=== PATIENT | male | born 1955 | race Caucasian/White ===

== ENCOUNTER 2021-04-09 15:46 | Inpatient (IN) ==
[2021-04-09 16:50] LABS: Albumin 2.6 g/dL (3.2-5.2); Calcium 8.6 mg/dL (8.6-10.3); Magnesium 1.7 mg/dL (1.9-2.7); Potassium 4.3 mmol/L (3.5-5.0); Total Bilirubin 0.9 mg/dL (0.2-1.0)
[2021-04-09 16:56] LABS: Albumin/Globulin Ratio 0.8 (1-3); C Reactive Protein 156.55 mg/L (<8.01); EGFR African American 69.1 (>60); EGFR Non-African American 57.1 (>60); Globulin 3.4 g/dL (2-4)
[2021-04-09] MEDS ORDERED: Magnesium Sulfate 2 gm BAG 2 GM/50 ML BAG IVPB ONE (17:05)
[2021-04-09 17:51] LABS: Anisocytosis 3+; Hypochromasia 1+
[2021-04-09 17:52] LABS: ABS Lymphocytes 0.8 10^3/ul (1.0-4.8); ABS Monocytes 0.4 10^3/ul (0-0.8); ABS Neutrophils 8.2 10^3/ul (1.5-7.7); ABS Nucleated RBC 0.1 10^3/ul; Hematocrit 31 % (42-52); Hemoglobin 10.1 g/dL (14.0-18.0); Lymphocyte % 8.1 %; Mean Corpuscular HGB Conc 32 g/dL (31-36); Mean Corpuscular Hemoglobin 34 pg (27-31); Mean Corpuscular Volume 106 fL (80-94); Mean Platelet Volume 9.3 fL (7.4-10.4); Nucleated Red Blood Cells % 0.5; Platelet Count 104 10^3/uL (150-450); Red Blood Count 2.96 10^6 /uL (4.18-5.48); Red Cell Distribution Width 26 % (10-15); White Blood Count 9.4 10^3/uL (3.5-10.8)
[2021-04-09] MEDS ORDERED: NS 0.9% 1000 ml BAG 1,000 ML IV ONE (19:51)
[2021-04-09] MEDS ORDERED: cefTRIAXone 1 gm/50 mL NS BAG 1 GM/50 ML BAG IV ONE (20:20)
[2021-04-09 20:33] LABS: PCO2 Arterial 59 mmHg (35-45); PO2 Arterial 171 mmHg (80-100)
[2021-04-09] MEDS ORDERED: Vancomycin 1,000 MG in NS 0.9% 250 ml 250 ML IVPB ONE (20:45)
[2021-04-09] MEDS ORDERED: Vancomycin per Pharmacy 1 EA NOTE FOLLOW UP SCH (21:00)
[2021-04-09 21:03] LABS: Phosphorus 2.9 mg/dL (2.5-5.0)
[2021-04-09] MEDS ORDERED: Thiamine 100 MG/ML 2 ml VIAL (200 mg) IM ONE (21:05)
[2021-04-09] MEDS ORDERED: Cefepime 1 GM IV - ED ONCE IV ONE (21:45)
[2021-04-09] MEDS ORDERED: Vancomycin 1,250 MG in NS 0.9% 250 ml 250 ML IVPB ONE (22:00)
[2021-04-09 22:19] LABS: Alcohol, S < 10 mg/dL (<10)
[2021-04-09 22:34] LABS: TSH Ultra Thyroid Stim Horm 0.45 mcIU/mL (0.34-5.60)
[2021-04-09] MEDS ORDERED: Lactated Ringers 1000 ml BAG 1,000 ML IV ONE (22:41)
[2021-04-10 01:07] LABS: Urine Appearance Turbid; Urine Bilirubin Negative (Negative); Urine Blood 2+ (Negative); Urine Color Amber; Urine Glucose Negative (Negative); Urine Ketones Negative (Negative); Urine Nitrite Negative (Negative); Urine Protein 3+(>=500 mg/dL) (Negative); Urine Specific Gravity 1.016 (1.002-1.030); Urine Urobilinogen Positive (Negative)
[2021-04-10 01:08] LABS: Urine Benzodiazepine Screen None Detected (None Detect); Urine Cannabinoids Screen Presumptive Positive (None Detect); Urine Opiates Screen None Detected (None Detect)
[2021-04-10 01:36] LABS: Urine Bacteria Absent (Absent); Urine Red Blood Cell 2+(6-10/hpf) (Absent); Urine White Blood Cell 3+(>20/hpf) (Absent)
[2021-04-10] MEDS ORDERED: Etomidate 20 mg/10 ml 2 MG/ML 10 ml VIAL ONE (01:37)
[2021-04-10] MEDS ORDERED: Succinylcholine 200 mg VIAL 20 mg/ml 10 ml VIAL (200 mg) ONE (01:38)
[2021-04-10 02:06] LABS: PCO2 Arterial 50 mmHg (35-45); PO2 Arterial 284 mmHg (80-100)
[2021-04-10] MEDS: Cefepime 1 GM in Dextrose 1 GM/50 ML BAG IV SCH ×2 (02:30→12:59)
[2021-04-10] MEDS ORDERED: Thiamine 100 MG/ML 2 ml VIAL (200 mg) IV ONE (02:59)
[2021-04-10] MEDS ORDERED: Folic Acid 1 mg SYRINGE 0.2 ML SYRINGE IV ONE (03:00)
[2021-04-10] MEDS ORDERED: Folic Acid IV 1 MG in NS 0.9% 50 ML 50 ML IV ONE (04:00)
[2021-04-10] MEDS ORDERED: Thiamine IV 100 MG in NS 0.9% 50 ML Q24H IV ONE (04:00)
[2021-04-10 04:35] LABS: ABS Lymphocytes 0.8 10^3/ul (1.0-4.8); ABS Monocytes 0.5 10^3/ul (0-0.8); ABS Neutrophils 7.8 10^3/ul (1.5-7.7); Eosinophil % 0.1 %; Hematocrit 31 % (42-52); Hemoglobin 10.3 g/dL (14.0-18.0); Lymphocyte % 8.3 %; Mean Corpuscular HGB Conc 33 g/dL (31-36); Mean Corpuscular Hemoglobin 35 pg (27-31); Mean Corpuscular Volume 105 fL (80-94); Mean Platelet Volume 9.1 fL (7.4-10.4); Nucleated Red Blood Cells % 0.2; Platelet Count 78 10^3/uL (150-450); Red Blood Count 2.95 10^6 /uL (4.18-5.48); Red Cell Distribution Width 26 % (10-15); White Blood Count 9.1 10^3/uL (3.5-10.8)
[2021-04-10 04:54] LABS: Anion Gap 5 mmol/L (2-11); Blood Urea Nitrogen 37 mg/dL (6-24); C Reactive Protein 175.93 mg/L (<8.01); CO2 Carbon Dioxide 26 mmol/L (22-32); Calcium 8.4 mg/dL (8.6-10.3); Chloride 107 mmol/L (101-111); EGFR Non-African American 58.7 (>60); Glucose 106 mg/dL (70-100); Magnesium 2.1 mg/dL (1.9-2.7); Potassium 4.3 mmol/L (3.5-5.0); Sodium 138 mmol/L (135-145)
[2021-04-10] MEDS: Multivitamins/Minerals TAB PO SCH ×2 (05:16→10:14)
[2021-04-10 06:54] LABS: Anisocytosis 2+
[2021-04-10 06:55] LABS: Polychromasia 1+; Schistocytes 1+
[2021-04-10 06:59] LABS: Acanthocytes 2+
[2021-04-10] MEDS: Thiamine 100 MG/ML 2 ml VIAL 250 MG in NS 0.9% 100 ml BAG 100 ML IV SCH (09:10)
[2021-04-10] MEDS: Vancomycin 750 MG in NS 0.9% 250 ML IVPB SCH ×2 (10:13→20:47)
[2021-04-10] MEDS ORDERED: Thiamine 100 MG/ML 2 ml VIAL 100 MG, Folic Acid IV 1 MG, Multiple Vitamin IV ADULT 10 M... IV ONE (10:30)
[2021-04-10 11:36] LABS: Total Iron Binding Capacity 160 mcg/dL (250-450); Transferrin 114 mg/dL (203-362)
[2021-04-10 11:38] LABS: % Iron Saturation 12 % (15-55); Iron < 20 ug/dL (50-212); Unsaturated Iron Binding < 145 ug/dL
[2021-04-10 11:58] LABS: Ferritin 278.8 ng/mL (24-336)
[2021-04-10 12:01] LABS: Folate > 20.00 ng/mL (5.90-24.80)
[2021-04-10 12:02] LABS: Vitamin B12 816 pg/mL (180-914)
[2021-04-10] MEDS: Enoxaparin 40 MG/0.4 ML SYR SUBCUT SCH (12:58)
[2021-04-10 15:30] LABS: Calcium 8.1 mg/dL (8.6-10.3); EGFR African American 74.5 (>60); EGFR Non-African American 61.6 (>60); Phosphorus 3.7 mg/dL (2.5-5.0)
[2021-04-10 16:09] LABS: HIV 4th Generation Nonreactive (Nonreactive)
[2021-04-11] MEDS: Cefepime 1 GM in Dextrose 1 GM/50 ML BAG IV SCH ×2 (00:05→12:39)
[2021-04-11] MEDS ORDERED: Ondansetron 4 mg VIAL 2 MG/ML 2 ml VIAL IV PRN (03:49)
[2021-04-11 04:38] LABS: Albumin 2.1 g/dL (3.2-5.2); Albumin/Globulin Ratio 0.7 (1-3); Calcium 8.2 mg/dL (8.6-10.3); EGFR African American 64.9 (>60); EGFR Non-African American 53.6 (>60); Globulin 3.2 g/dL (2-4); Phosphorus 3.9 mg/dL (2.5-5.0); Potassium 4.4 mmol/L (3.5-5.0); Total Bilirubin 0.7 mg/dL (0.2-1.0); Total Protein 5.3 g/dL (6.4-8.9)
[2021-04-11 04:39] LABS: ABS Lymphocytes 0.8 10^3/ul (1.0-4.8); ABS Monocytes 0.3 10^3/ul (0-0.8); ABS Neutrophils 6.3 10^3/ul (1.5-7.7); Eosinophil % 0.3 %; Hematocrit 33 % (42-52); Hemoglobin 10.4 g/dL (14.0-18.0); Lymphocyte % 10.9 %; Mean Corpuscular HGB Conc 32 g/dL (31-36); Mean Corpuscular Hemoglobin 34 pg (27-31); Mean Corpuscular Volume 106 fL (80-94); Mean Platelet Volume 9.7 fL (7.4-10.4); Nucleated Red Blood Cells % 0.6; Platelet Count 54 10^3/uL (150-450); Red Blood Count 3.11 10^6 /uL (4.18-5.48); Red Cell Distribution Width 26 % (10-15); White Blood Count 7.5 10^3/uL (3.5-10.8)
[2021-04-11] MEDS ORDERED: Norepinephrine 16MCG/ML IVPRE 4,000 MCG/250 ML BAG IV ONE (08:17)
[2021-04-11] MEDS: Norepinephrine 16MCG/ML IVPRE 4,000 MCG/250 ML BAG IV SCH ×3 (08:30→18:07)
[2021-04-11] MEDS ORDERED: Lorazepam PYXIS KEY ONE (08:49)
[2021-04-11] MEDS ORDERED: LORazepam 2 mg VIAL 1 ml ONE (08:49)
[2021-04-11] MEDS ORDERED: Lidocaine 2% PF 5 ML VIAL ONE (08:51)
[2021-04-11] MEDS ORDERED: Hydrocortisone INJ 100 MG/2ML 2 ML VIAL ONE ×2 (09:15→10:32)
[2021-04-11] MEDS ORDERED: Rocuronium 50 mg VIAL 10 mg/ml 5 ml VIAL (50 mg) ONE (09:16)
[2021-04-11] MEDS ORDERED: Etomidate 20 mg/10 ml 2 MG/ML 10 ml VIAL ONE (09:16)
[2021-04-11] MEDS ORDERED: LORazepam 2 mg VIAL 1 ml IV PUSH ONE (09:17)
[2021-04-11] MEDS ORDERED: Lorazepam PYXIS KEY PRN ×2 (09:17→12:09)
[2021-04-11] MEDS: Hydrocortisone INJ 100 MG/2ML 2 ML VIAL IV SCH ×2 (09:18→17:12)
[2021-04-11] MEDS ORDERED: Vancomycin Trough Check NOTE FOLLOW UP ONE (09:30)
[2021-04-11] MEDS ORDERED: Hydrocortisone INJ 100 MG/2ML 2 ML VIAL IV ONE (09:30)
[2021-04-11] MEDS ORDERED: Hydrocortisone INJ 250 MG VIAL IV ONE (09:30)
[2021-04-11] MEDS: Multivitamins/Minerals TAB PO SCH (09:56)
[2021-04-11] MEDS: Thiamine 100 MG/ML 2 ml VIAL 250 MG in NS 0.9% 100 ml BAG 100 ML IV SCH (09:59)
[2021-04-11] MEDS ORDERED: Hydrocortisone INJ 100 MG/2ML 2 ML VIAL IV SCH (10:00)
[2021-04-11 10:04] LABS: Urine Appearance Cloudy; Urine Bilirubin Negative (Negative); Urine Blood 3+ (Negative); Urine Color Amber; Urine Glucose Negative (Negative); Urine Ketones Negative (Negative); Urine Nitrite Negative (Negative); Urine Protein 2+(100 mg/dL) (Negative); Urine Specific Gravity 1.019 (1.002-1.030); Urine Urobilinogen Negative (Negative)
[2021-04-11 10:13] LABS: Activated Partial Thrombo Time 37.6 seconds (26.0-38.0); Fibrinogen 278.8 mg/dL (110.8-404.3); INR 1.36 (0.86-1.15)
[2021-04-11 10:19] LABS: Urine Bacteria Absent (Absent); Urine Granular Casts Present (Absent); Urine Red Blood Cell 3+(>10/hpf) (Absent); Urine White Blood Cell 3+(>20/hpf) (Absent)
[2021-04-11 10:24] LABS: Troponin I 0.26 ng/mL (<0.03)
[2021-04-11 10:44] LABS: PCO2 Arterial 32 mmHg (35-45); PO2 Arterial 232 mmHg (80-100)
[2021-04-11 10:51] LABS: Vancomycin Trough 16.8 mcg/mL
[2021-04-11] MEDS: Pantoprazole VIAL 40 MG VIAL IV SCH (11:14)
[2021-04-11] MEDS: Vancomycin 750 MG in NS 0.9% 250 ML IVPB SCH (11:14)
[2021-04-11] MEDS: Chlorhexidine MOUTHWASH 0.12% 15 ML UDC SWISH SPIT SCH ×4 (11:14→21:50)
[2021-04-11 12:29] LABS: Hematocrit 31 % (42-52); Hemoglobin 9.6 g/dL (14.0-18.0); Mean Corpuscular HGB Conc 31 g/dL (31-36); Mean Corpuscular Hemoglobin 34 pg (27-31); Mean Corpuscular Volume 108 fL (80-94); Mean Platelet Volume 10.4 fL (7.4-10.4); Platelet Count 61 10^3/uL (150-450); Red Blood Count 2.83 10^6 /uL (4.18-5.48); Red Cell Distribution Width 26 % (10-15); White Blood Count 8.7 10^3/uL (3.5-10.8)
[2021-04-11 12:38] LABS: Anion Gap 8 mmol/L (2-11); Blood Urea Nitrogen 44 mg/dL (6-24); CO2 Carbon Dioxide 22 mmol/L (22-32); Calcium 7.7 mg/dL (8.6-10.3); Chloride 111 mmol/L (101-111); EGFR Non-African American 54.6 (>60); Glucose 96 mg/dL (70-100); Magnesium 1.9 mg/dL (1.9-2.7); Phosphorus 4.1 mg/dL (2.5-5.0); Potassium 4.3 mmol/L (3.5-5.0); Sodium 141 mmol/L (135-145)
[2021-04-11] MEDS: Enoxaparin 40 MG/0.4 ML SYR SUBCUT SCH (12:38)
[2021-04-11] MEDS: fentaNYL 100 mcg/2 ml 50 MCG/ML VIAL IV SLOW PU PRN ×2 (12:48→17:29)
[2021-04-11] MEDS ORDERED: Heparin 5000 UNITS/ML 1 mL VIAL IV SCH (14:00)
[2021-04-11] MEDS: Heparin DRIP 25,000 UNITS BAG 25,000 UNITS/500 ML BAG IV SCH (14:37)
[2021-04-11] MEDS ORDERED: NORMOSOL-R pH 7.4 1000 mL BAG 1,000 ML IV SCH (15:00)
[2021-04-11 15:10] LABS: Troponin I 0.25 ng/mL (<0.03)
[2021-04-11] MEDS: LORazepam 2 mg VIAL 1 ml IV PUSH PRN (17:28)
[2021-04-11] MEDS: Artificial Tear OPHTH.OINT 3.5 GM BOTH EYES PRN (17:39)
[2021-04-11] MEDS ORDERED: Cyanocobalamin INJ 1,000 MCG/ML VIAL 1 ML VIAL IM ONE (21:05)
[2021-04-11 21:34] LABS: ABS Basophils 0.1 10^3/ul (0-0.2); ABS Lymphocytes 0.5 10^3/ul (1.0-4.8); ABS Monocytes 0.2 10^3/ul (0-0.8); ABS Neutrophils 8.1 10^3/ul (1.5-7.7); ABS Nucleated RBC 0.1 10^3/ul; Hematocrit 30 % (42-52); Hemoglobin 9.8 g/dL (14.0-18.0); Lymphocyte % 5.2 %; Mean Corpuscular HGB Conc 33 g/dL (31-36); Mean Corpuscular Hemoglobin 34 pg (27-31); Mean Corpuscular Volume 104 fL (80-94); Mean Platelet Volume 10.4 fL (7.4-10.4); Nucleated Red Blood Cells % 1.1; Platelet Count 58 10^3/uL (150-450); Red Blood Count 2.86 10^6 /uL (4.18-5.48); Red Cell Distribution Width 25 % (10-15); White Blood Count 8.8 10^3/uL (3.5-10.8)
[2021-04-11 21:39] LABS: Anion Gap 6 mmol/L (2-11); Blood Urea Nitrogen 46 mg/dL (6-24); CO2 Carbon Dioxide 25 mmol/L (22-32); Calcium 7.7 mg/dL (8.6-10.3); Chloride 110 mmol/L (101-111); EGFR African American 68.4 (>60); EGFR Non-African American 56.6 (>60); Glucose 104 mg/dL (70-100); Magnesium 1.8 mg/dL (1.9-2.7); Phosphorus 3.5 mg/dL (2.5-5.0); Potassium 4.2 mmol/L (3.5-5.0); Sodium 141 mmol/L (135-145)
[2021-04-11 21:45] LABS: Troponin I 0.31 ng/mL (<0.03)
[2021-04-11] MEDS ORDERED: Magnesium Sulfate 2 gm BAG 2 GM/50 ML BAG IVPB ONE (22:50)
[2021-04-12] MEDS: Chlorhexidine MOUTHWASH 0.12% 15 ML UDC SWISH SPIT SCH ×6 (01:43→23:18)
[2021-04-12] MEDS: Cefepime 1 GM in Dextrose 1 GM/50 ML BAG IV SCH ×2 (01:44→13:08)
[2021-04-12] MEDS: Hydrocortisone INJ 100 MG/2ML 2 ML VIAL IV SCH ×3 (01:44→16:27)
[2021-04-12 03:32] LABS: ABS Lymphocytes 0.6 10^3/ul (1.0-4.8); ABS Monocytes 0.4 10^3/ul (0-0.8); ABS Neutrophils 8.4 10^3/ul (1.5-7.7); ABS Nucleated RBC 0.1 10^3/ul; Calcium 7.8 mg/dL (8.6-10.3); EGFR Non-African American 54.6 (>60); Hematocrit 31 % (42-52); Hemoglobin 10.2 g/dL (14.0-18.0); Lymphocyte % 6.2 %; Magnesium 2.4 mg/dL (1.9-2.7); Mean Corpuscular HGB Conc 33 g/dL (31-36); Mean Corpuscular Hemoglobin 35 pg (27-31); Mean Corpuscular Volume 104 fL (80-94); Mean Platelet Volume 10.3 fL (7.4-10.4); Nucleated Red Blood Cells % 1.3; Phosphorus 3.4 mg/dL (2.5-5.0); Platelet Count 64 10^3/uL (150-450); Potassium 4.1 mmol/L (3.5-5.0); Red Blood Count 2.97 10^6 /uL (4.18-5.48); Red Cell Distribution Width 25 % (10-15); White Blood Count 9.3 10^3/uL (3.5-10.8)
[2021-04-12] MEDS: Norepinephrine 16MCG/ML IVPRE 4,000 MCG/250 ML BAG IV SCH ×4 (03:33→23:41)
[2021-04-12 03:41] LABS: Fibrinogen 298.9 mg/dL (110.8-404.3)
[2021-04-12 03:49] LABS: Activated Partial Thrombo Time 104.2 seconds (26.0-38.0)
[2021-04-12] MEDS: Artificial Tear OPHTH.OINT 3.5 GM BOTH EYES PRN (05:17)
[2021-04-12] MEDS ORDERED: NORMOSOL-R pH 7.4 1000 mL BAG 1,000 ML IV ONE (06:02)
[2021-04-12] MEDS: LORazepam 2 mg VIAL 1 ml IV PUSH PRN (06:57)
[2021-04-12] MEDS: fentaNYL 100 mcg/2 ml 50 MCG/ML VIAL IV SLOW PU PRN (07:03)
[2021-04-12] MEDS: Thiamine 100 MG/ML 2 ml VIAL 250 MG in NS 0.9% 100 ml BAG 100 ML IV SCH (08:17)
[2021-04-12] MEDS: Pantoprazole VIAL 40 MG VIAL IV SCH (08:17)
[2021-04-12] MEDS: Multivitamins/Minerals TAB PO SCH (08:17)
[2021-04-12] MEDS ORDERED: Propofol 10 mg/ml 100 ML BTL 100 ML ONE (09:09)
[2021-04-12] MEDS: Vancomycin 1,000 MG in NS 0.9% 250 ml 250 ML IVPB SCH (09:59)
[2021-04-12] MEDS ORDERED: Propofol 10 mg/ml 100 ML BTL 100 ML IV SCH (10:00)
[2021-04-12 11:09] LABS: Body Fluid Source OTH
[2021-04-12 11:24] LABS: Body Fluid Appearance Cloudy; Body Fluid Color Colorless
[2021-04-12 11:59] LABS: Hematocrit 29 % (42-52); Hemoglobin 9.5 g/dL (14.0-18.0); Mean Corpuscular HGB Conc 33 g/dL (31-36); Mean Corpuscular Hemoglobin 34 pg (27-31); Mean Corpuscular Volume 104 fL (80-94); Platelet Count 60 10^3/uL (150-450); Red Blood Count 2.79 10^6 /uL (4.18-5.48); Red Cell Distribution Width 26 % (10-15); White Blood Count 10.4 10^3/uL (3.5-10.8)
[2021-04-12 12:14] LABS: ALT 62 U/L (7-52); AST 61 U/L (13-39); Albumin 1.9 g/dL (3.2-5.2); Albumin/Globulin Ratio 0.7 (1-3); Alkaline Phosphatase 105 U/L (35-149); Anion Gap 7 mmol/L (2-11); Blood Urea Nitrogen 46 mg/dL (6-24); CO2 Carbon Dioxide 24 mmol/L (22-32); Calcium 7.6 mg/dL (8.6-10.3); Chloride 111 mmol/L (101-111); EGFR African American 68.4 (>60); EGFR Non-African American 56.6 (>60); Globulin 2.9 g/dL (2-4); Glucose 137 mg/dL (70-100); Magnesium 2.3 mg/dL (1.9-2.7); Phosphorus 3.3 mg/dL (2.5-5.0); Potassium 3.9 mmol/L (3.5-5.0); Sodium 142 mmol/L (135-145); Total Protein 4.8 g/dL (6.4-8.9)
[2021-04-12 12:16] LABS: Troponin I 0.36 ng/mL (<0.03)
[2021-04-12 14:45] LABS: Body Fluid Mono 11 %; Body Fluid Total Cells Counted 100
[2021-04-12] MEDS: Heparin DRIP 25,000 UNITS BAG 25,000 UNITS/500 ML BAG IV SCH (18:08)
[2021-04-12 20:49] LABS: Troponin I 0.31 ng/mL (<0.03)
[2021-04-12] MEDS: Propofol 10 mg/ml 100 ML BTL 100 ML IV SCH (23:42)
[2021-04-13] MEDS: Hydrocortisone INJ 100 MG/2ML 2 ML VIAL IV SCH ×3 (01:40→17:45)
[2021-04-13] MEDS: Cefepime 1 GM in Dextrose 1 GM/50 ML BAG IV SCH ×2 (01:40→12:16)
[2021-04-13] MEDS: Chlorhexidine MOUTHWASH 0.12% 15 ML UDC SWISH SPIT SCH ×6 (02:55→21:30)
[2021-04-13] MEDS ORDERED: NORMOSOL-R pH 7.4 1000 mL BAG 1,000 ML IV ONE (05:32)
[2021-04-13] MEDS: fentaNYL 100 mcg/2 ml 50 MCG/ML VIAL IV SLOW PU PRN ×2 (05:49→11:14)
[2021-04-13 06:02] LABS: Anion Gap 6 mmol/L (2-11); CO2 Carbon Dioxide 25 mmol/L (22-32); Calcium 7.6 mg/dL (8.6-10.3); Chloride 111 mmol/L (101-111); Magnesium 2.2 mg/dL (1.9-2.7); Potassium 3.9 mmol/L (3.5-5.0); Sodium 142 mmol/L (135-145)
[2021-04-13 06:03] LABS: ABS Lymphocytes 0.7 10^3/ul (1.0-4.8); ABS Monocytes 0.5 10^3/ul (0-0.8); ABS Neutrophils 8.4 10^3/ul (1.5-7.7); ABS Nucleated RBC 0.1 10^3/ul; Hematocrit 27 % (42-52); Hemoglobin 9.1 g/dL (14.0-18.0); Lymphocyte % 7.1 %; Mean Corpuscular HGB Conc 33 g/dL (31-36); Mean Corpuscular Hemoglobin 34 pg (27-31); Mean Corpuscular Volume 103 fL (80-94); Mean Platelet Volume 11.2 fL (7.4-10.4); Nucleated Red Blood Cells % 0.9; Platelet Count 56 10^3/uL (150-450); Red Blood Count 2.66 10^6 /uL (4.18-5.48); Red Cell Distribution Width 25 % (10-15); White Blood Count 9.6 10^3/uL (3.5-10.8)
[2021-04-13 06:07] LABS: Blood Urea Nitrogen 48 mg/dL (6-24); EGFR African American 69.7 (>60); EGFR Non-African American 57.6 (>60); Glucose 162 mg/dL (70-100); Phosphorus 3.2 mg/dL (2.5-5.0)
[2021-04-13] MEDS: Norepinephrine 16MCG/ML IVPRE 4,000 MCG/250 ML BAG IV SCH (06:12)
[2021-04-13] MEDS ORDERED: KCL 20 MEQ/100 ML IVPREMIX 20 MEQ/100 ML BAG IV ONE (06:26)
[2021-04-13] MEDS: Phenylephrine IV 50 MG in NS 0.9% 250 ml 245 ML IV SCH ×2 (06:31→23:20)
[2021-04-13] MEDS: Pantoprazole VIAL 40 MG VIAL IV SCH (08:20)
[2021-04-13 08:33] LABS: Troponin I 0.31 ng/mL (<0.03)
[2021-04-13] MEDS: Thiamine 100 MG/ML 2 ml VIAL 250 MG in NS 0.9% 100 ml BAG 100 ML IV SCH (09:30)
[2021-04-13] MEDS: Vancomycin 1,000 MG in NS 0.9% 250 ml 250 ML IVPB SCH (09:48)
[2021-04-13 12:02] LABS: Body Fluid Source Pleural Fluid
[2021-04-13 12:27] LABS: Body Fluid Appearance Clear; Body Fluid Color Yellow; Body Fluid WBC 17 /mcL
[2021-04-13 14:33] LABS: Body Fluid Mono 22 %; Body Fluid Total Cells Counted 200
[2021-04-13] MEDS: Propofol 10 mg/ml 100 ML BTL 100 ML IV SCH (14:45)
[2021-04-13 21:16] LABS: LDH 213 U/L (140-271)
[2021-04-14] MEDS: Cefepime 1 GM in Dextrose 1 GM/50 ML BAG IV SCH ×2 (01:58→12:59)
[2021-04-14] MEDS: Hydrocortisone INJ 100 MG/2ML 2 ML VIAL IV SCH ×3 (01:58→15:48)
[2021-04-14] MEDS: Chlorhexidine MOUTHWASH 0.12% 15 ML UDC SWISH SPIT SCH ×6 (01:58→21:26)
[2021-04-14 04:52] LABS: ABS Lymphocytes 0.7 10^3/ul (1.0-4.8); ABS Monocytes 0.5 10^3/ul (0-0.8); ABS Neutrophils 7.2 10^3/ul (1.5-7.7); ABS Nucleated RBC 0.1 10^3/ul; Hematocrit 25 % (42-52); Hemoglobin 8.2 g/dL (14.0-18.0); Lymphocyte % 7.9 %; Mean Corpuscular HGB Conc 33 g/dL (31-36); Mean Corpuscular Hemoglobin 34 pg (27-31); Mean Corpuscular Volume 103 fL (80-94); Mean Platelet Volume 10.5 fL (7.4-10.4); Nucleated Red Blood Cells % 0.8; Platelet Count 47 10^3/uL (150-450); Red Blood Count 2.43 10^6 /uL (4.18-5.48); Red Cell Distribution Width 25 % (10-15); White Blood Count 8.4 10^3/uL (3.5-10.8)
[2021-04-14 05:04] LABS: Calcium 7.6 mg/dL (8.6-10.3); EGFR African American 90.2 (>60); EGFR Non-African American 74.5 (>60); Phosphorus 2.6 mg/dL (2.5-5.0); Potassium 3.5 mmol/L (3.5-5.0)
[2021-04-14] MEDS ORDERED: Vancomycin Trough Check NOTE FOLLOW UP ONE ×2 (05:30→09:30)
[2021-04-14] MEDS: KCL 20 MEQ/100 ML IVPREMIX 20 MEQ/100 ML BAG IV SCH ×3 (05:48→10:08)
[2021-04-14] MEDS: Propofol 10 mg/ml 100 ML BTL 100 ML IV SCH (05:54)
[2021-04-14] MEDS: Heparin DRIP 25,000 UNITS BAG 25,000 UNITS/500 ML BAG IV SCH (06:05)
[2021-04-14 06:15] LABS: Anisocytosis 2+; Target Cells 1+
[2021-04-14 06:16] LABS: Polychromasia 1+
[2021-04-14 06:18] LABS: Acanthocytes 1+
[2021-04-14] MEDS: Pantoprazole VIAL 40 MG VIAL IV SCH ×2 (07:43→21:26)
[2021-04-14] MEDS: Thiamine 100 MG/ML 2 ml VIAL 250 MG in NS 0.9% 100 ml BAG 100 ML IV SCH (09:12)
[2021-04-14] MEDS: Vancomycin 1,000 MG in NS 0.9% 250 ml 250 ML IVPB SCH (10:25)
[2021-04-14 11:57] LABS: RPR Nonreactive (Nonreactive)
[2021-04-14] MEDS ORDERED: Iodixanol (CONTRAST) 320 MG/ML 100 ML SDV IV ONE (12:07)
[2021-04-14] MEDS: fentaNYL 100 mcg/2 ml 50 MCG/ML VIAL IV SLOW PU PRN (12:11)
[2021-04-14 14:29] LABS: Lactate Dehydrogenase, BF 76 U/L
[2021-04-14] MEDS ORDERED: Enoxaparin 80 MG/0.8 ML SYR SUBCUT SCH (18:00)
[2021-04-14 20:54] LABS: Hematocrit 22 % (42-52); Hemoglobin 7.1 g/dL (14.0-18.0)
[2021-04-14] MEDS: Phenylephrine IV 50 MG in NS 0.9% 250 ml 245 ML IV SCH (21:26)
[2021-04-15] MEDS: Hydrocortisone INJ 100 MG/2ML 2 ML VIAL IV SCH ×3 (00:08→17:09)
[2021-04-15] MEDS: Cefepime 1 GM in Dextrose 1 GM/50 ML BAG IV SCH ×2 (00:08→13:26)
[2021-04-15] MEDS: fentaNYL 100 mcg/2 ml 50 MCG/ML VIAL IV SLOW PU PRN (01:07)
[2021-04-15] MEDS: Propofol 10 mg/ml 100 ML BTL 100 ML IV SCH ×2 (01:43→18:04)
[2021-04-15] MEDS: Chlorhexidine MOUTHWASH 0.12% 15 ML UDC SWISH SPIT SCH ×6 (01:45→20:16)
[2021-04-15] MEDS ORDERED: Vancomycin Random Level NOTE FOLLOW UP ONE (06:00)
[2021-04-15 06:19] LABS: Albumin/Globulin Ratio 0.7 (1-3); Calcium 7.6 mg/dL (8.6-10.3); EGFR African American 113.4 (>60); EGFR Non-African American 93.7 (>60); Globulin 2.8 g/dL (2-4); Magnesium 1.9 mg/dL (1.9-2.7); Phosphorus 2.4 mg/dL (2.5-5.0); Potassium 4.2 mmol/L (3.5-5.0); Total Bilirubin 0.6 mg/dL (0.2-1.0); Total Protein 4.8 g/dL (6.4-8.9); Vancomycin Random 15.5 mcg/mL
[2021-04-15 06:24] LABS: INR 1.06 (0.86-1.15)
[2021-04-15 06:31] LABS: ABS Lymphocytes 0.6 10^3/ul (1.0-4.8); ABS Monocytes 0.5 10^3/ul (0-0.8); ABS Neutrophils 8.1 10^3/ul (1.5-7.7); ABS Nucleated RBC 0.2 10^3/ul; Hematocrit 30 % (42-52); Hemoglobin 10.3 g/dL (14.0-18.0); Lymphocyte % 6.1 %; Mean Corpuscular HGB Conc 34 g/dL (31-36); Mean Corpuscular Hemoglobin 34 pg (27-31); Mean Corpuscular Volume 100 fL (80-94); Nucleated Red Blood Cells % 1.9; Platelet Count 36 10^3/uL (150-450); Red Blood Count 3.01 10^6 /uL (4.18-5.48); Red Cell Distribution Width 20 % (10-15); White Blood Count 9.2 10^3/uL (3.5-10.8)
[2021-04-15] MEDS: Pantoprazole VIAL 40 MG VIAL IV SCH ×2 (09:10→20:16)
[2021-04-15] MEDS: Thiamine 100 MG/ML 2 ml VIAL 250 MG in NS 0.9% 100 ml BAG 100 ML IV SCH (09:10)
[2021-04-15 12:21] LABS: Anisocytosis 2+; Burr Cells 1+; Hypochromasia 1+; Macrocytosis 1+; Polychromasia 1+
[2021-04-15 13:30] LABS: Fluid Type, Protein, Total Pleural; Total Protein, BF 1.6 g/dL
[2021-04-15] MEDS ORDERED: Vancomycin 1000 MG in NS 0.9% 250 ML IVPB ONE (15:00)
[2021-04-15 20:59] LABS: HIT ELISA 0.101 OD (<0.400); Heparin PF4 Antibody Interp Negative (Negative)
[2021-04-16] MEDS: Chlorhexidine MOUTHWASH 0.12% 15 ML UDC SWISH SPIT SCH ×6 (00:18→21:34)
[2021-04-16] MEDS: Hydrocortisone INJ 100 MG/2ML 2 ML VIAL IV SCH ×3 (00:18→15:44)
[2021-04-16] MEDS: Cefepime 1 GM in Dextrose 1 GM/50 ML BAG IV SCH (00:18)
[2021-04-16] MEDS: Artificial Tear OPHTH.OINT 3.5 GM BOTH EYES PRN ×2 (00:30→04:56)
[2021-04-16] MEDS: Phenylephrine IV 50 MG in NS 0.9% 250 ml 245 ML IV SCH (00:49)
[2021-04-16] MEDS: fentaNYL 100 mcg/2 ml 50 MCG/ML VIAL IV SLOW PU PRN ×3 (01:08→15:45)
[2021-04-16 05:25] LABS: ABS Lymphocytes 0.6 10^3/ul (1.0-4.8); ABS Monocytes 0.6 10^3/ul (0-0.8); ABS Neutrophils 8.8 10^3/ul (1.5-7.7); ABS Nucleated RBC 0.1 10^3/ul; Hematocrit 28 % (42-52); Hemoglobin 9.6 g/dL (14.0-18.0); Lymphocyte % 5.9 %; Mean Corpuscular HGB Conc 34 g/dL (31-36); Mean Corpuscular Hemoglobin 34 pg (27-31); Mean Corpuscular Volume 101 fL (80-94); Mean Platelet Volume 10.2 fL (7.4-10.4); Platelet Count 42 10^3/uL (150-450); Red Cell Distribution Width 21 % (10-15); White Blood Count 10.1 10^3/uL (3.5-10.8)
[2021-04-16 05:33] LABS: Albumin/Globulin Ratio 0.7 (1-3); Calcium 7.8 mg/dL (8.6-10.3); EGFR African American 113.4 (>60); EGFR Non-African American 93.7 (>60); Globulin 2.7 g/dL (2-4); Potassium 4.1 mmol/L (3.5-5.0); Total Bilirubin 0.7 mg/dL (0.2-1.0); Total Protein 4.7 g/dL (6.4-8.9)
[2021-04-16] MEDS ORDERED: Vancomycin Random Level NOTE FOLLOW UP ONE (06:00)
[2021-04-16 06:01] LABS: Vancomycin Random 19.1 mcg/mL
[2021-04-16 07:58] LABS: Magnesium 1.9 mg/dL (1.9-2.7); Phosphorus 2.2 mg/dL (2.5-5.0)
[2021-04-16] MEDS: Pantoprazole VIAL 40 MG VIAL IV SCH ×2 (08:07→21:34)
[2021-04-16] MEDS: Thiamine 100 MG/ML 2 ml VIAL 250 MG in NS 0.9% 100 ml BAG 100 ML IV SCH (08:43)
[2021-04-16] MEDS ORDERED: Potassium Phosphate IV 15 MMOLE in NS 0.9% 250 ml 250 ML IVPB ONE (10:00)
[2021-04-16 16:30] LABS: T.Pallidum TP-PA Negative (Negative)
[2021-04-17] MEDS: Chlorhexidine MOUTHWASH 0.12% 15 ML UDC SWISH SPIT SCH ×6 (01:35→20:56)
[2021-04-17] MEDS: Hydrocortisone INJ 100 MG/2ML 2 ML VIAL IV SCH ×3 (01:35→18:08)
[2021-04-17] MEDS: Propofol 10 mg/ml 100 ML BTL 100 ML IV SCH ×2 (02:45→17:44)
[2021-04-17 05:11] LABS: Hematocrit 23 % (42-52); Hemoglobin 7.4 g/dL (14.0-18.0); Mean Corpuscular HGB Conc 33 g/dL (31-36); Mean Corpuscular Hemoglobin 34 pg (27-31); Mean Corpuscular Volume 103 fL (80-94); Platelet Count 61 10^3/uL (150-450); Red Blood Count 2.19 10^6 /uL (4.18-5.48); Red Cell Distribution Width 21 % (10-15)
[2021-04-17 05:31] LABS: Calcium 7.3 mg/dL (8.6-10.3); EGFR African American 120.1 (>60); EGFR Non-African American 99.3 (>60); Magnesium 1.9 mg/dL (1.9-2.7); Phosphorus 2.8 mg/dL (2.5-5.0); Potassium 3.9 mmol/L (3.5-5.0)
[2021-04-17] MEDS ORDERED: Magnesium Sulfate 2 gm BAG 2 GM/50 ML BAG IVPB ONE (07:14)
[2021-04-17] MEDS: Phenylephrine IV 50 MG in NS 0.9% 250 ml 245 ML IV SCH (08:23)
[2021-04-17] MEDS: Pantoprazole VIAL 40 MG VIAL IV SCH ×2 (08:44→20:56)
[2021-04-17] MEDS: Thiamine 100 MG/ML 2 ml VIAL 250 MG in NS 0.9% 100 ml BAG 100 ML IV SCH (08:44)
[2021-04-17] MEDS ORDERED: LORazepam 2 mg VIAL 1 ml IV PUSH PRN (15:55)
[2021-04-17] MEDS ORDERED: LORazepam 2 mg VIAL 1 ml IV PUSH ONE (16:00)
[2021-04-17] MEDS ORDERED: Morphine PCA* 150 MG in PREMIX PCA SCH (16:00)
[2021-04-17] MEDS ORDERED: Morphine 10 MG/ML VIAL (1 ml) IV ONE (16:00)
[2021-04-17] MEDS ORDERED: Propofol 10 mg/ml 100 ML BTL 100 ML ONE (17:37)
[2021-04-18] MEDS: Chlorhexidine MOUTHWASH 0.12% 15 ML UDC SWISH SPIT SCH ×3 (01:09→09:13)
[2021-04-18] MEDS: Hydrocortisone INJ 100 MG/2ML 2 ML VIAL IV SCH ×2 (01:09→07:36)
[2021-04-18] MEDS: Propofol 10 mg/ml 100 ML BTL 100 ML IV SCH ×2 (02:59→05:47)
[2021-04-18] MEDS: Phenylephrine IV 50 MG in NS 0.9% 250 ml 245 ML IV SCH (03:00)
[2021-04-18 05:02] LABS: ABS Lymphocytes 0.8 10^3/ul (1.0-4.8); ABS Monocytes 0.6 10^3/ul (0-0.8); ABS Neutrophils 11.4 10^3/ul (1.5-7.7); ABS Nucleated RBC 0.1 10^3/ul; Hematocrit 21 % (42-52); Hemoglobin 6.8 g/dL (14.0-18.0); Lymphocyte % 6.5 %; Mean Corpuscular HGB Conc 32 g/dL (31-36); Mean Corpuscular Hemoglobin 34 pg (27-31); Mean Corpuscular Volume 104 fL (80-94); Mean Platelet Volume 10.1 fL (7.4-10.4); Nucleated Red Blood Cells % 0.7; Platelet Count 103 10^3/uL (150-450); Red Blood Count 2.01 10^6 /uL (4.18-5.48); Red Cell Distribution Width 21 % (10-15); White Blood Count 12.9 10^3/uL (3.5-10.8)
[2021-04-18 05:21] LABS: Albumin 1.9 g/dL (3.2-5.2); Albumin/Globulin Ratio 0.8 (1-3); Calcium 7.4 mg/dL (8.6-10.3); EGFR African American 120.1 (>60); EGFR Non-African American 99.3 (>60); Globulin 2.3 g/dL (2-4); Magnesium 2.2 mg/dL (1.9-2.7); Phosphorus 3.2 mg/dL (2.5-5.0); Potassium 3.9 mmol/L (3.5-5.0); Total Bilirubin 0.5 mg/dL (0.2-1.0); Total Protein 4.2 g/dL (6.4-8.9)
[2021-04-18] MEDS: Thiamine 100 MG/ML 2 ml VIAL 250 MG in NS 0.9% 100 ml BAG 100 ML IV SCH (07:36)
[2021-04-18] MEDS: Pantoprazole VIAL 40 MG VIAL IV SCH (07:36)
[2021-04-18 12:09] VITALS: BP 94/60
[2021-04-18] MEDS ORDERED: LORazepam 2 mg VIAL 1 ml IV PUSH PRN (12:12)
[2021-04-18] MEDS ORDERED: Lorazepam PYXIS KEY PRN (12:12)
[2021-04-18] MEDS ORDERED: LORazepam 2 mg VIAL 1 ml IV PUSH ONE (13:00)
[2021-04-18] MEDS ORDERED: Morphine 10 MG/ML VIAL (1 ml) IV ONE (13:00)
[2021-04-18] MEDS ORDERED: Morphine PCA* 150 MG in PREMIX PCA SCH (13:00)
[2021-04-23 13:17] LABS: BF PH 8.4
== END 2021-04-18 14:58 | disposition expired | DRG 870 ==
LOC: ED 15:46 → MEDTELE 20:46 → ICU 04-10 02:17
PROVIDERS: ADMIT Internal Medicine; ATTEND Internal Medicine Critical Care Medicine